=== PATIENT | male | born 1995 | race Caucasian/White ===

== ENCOUNTER 2023-10-31 20:38 | Emergency (ER) | payer MEDICAID ==
[~2023-10-31] VITALS: Ht 170.2 cm; Wt 116.0 kg
[2023-10-31 21:11] VITALS: O2SAT 98
[2023-10-31] MEDS ORDERED: CHLO3800 TP (21:27)
[2023-10-31] MEDS ORDERED: MUPI1OIN4 TP (21:27)
[2023-10-31 22:00] VITALS: BP 129/81; PULSE 84; RESP 14; TEMP 98.6
== END 2023-10-31 22:28 | disposition home or self-care (01) ==
LOC: ER 20:38
DX: L73.9 Follicular disorder, unspecified (principal)
CPT/HCPCS: 99283